=== PATIENT | male | born 1950 | race African-American/Black ===

== ENCOUNTER 2017-03-26 10:05 | Emergency (ER) ==
[2017-03-26 10:13] VITALS: BP 154/97; TEMP 96.9; BMI 40.1
--- NOTE | 2017-03-26 10:24 | ED.PDOC ---
General ED Provider: Dr. 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 LEAVE ROOM THEN BACK...FELT FAINT SHORT OF BREATH STILL SMELL IT FEELS MIGHT PASS OUT[ End ]1 hour ago 96.9 79 22 94% 154/97 4/10 CANNOT GET SMELL OF FUMES OUT OF HIS NOSTRILS...TRIED TO EAT DID NOT HELP. NO RESPIRATORY DISTRESS ON ARRIVAL. NO LOC. LUNGS CLEAR[ End ] Time Seen by Physician: 10:22 Mode of Arrival: Walk-In Information Source: Patient Exam Limitations: No limitations Primary Care Provider: SRINIVAS KLINE Nursing and Triage Documentation Reviewed and Agree: No Review of Systems - Review Of Systems Constitutional: Reports: Malaise, Weakness Eyes: Reports: No symptoms Ears, Nose, Mouth, Throat: Denies: Nose pain Respiratory: Reports: Short of air, Other Cardiac: Reports: No symptoms GI: Reports: No symptoms : Reports: No symptoms Musculoskeletal: Reports: No symptoms Skin: Reports: No symptoms Neurological: Reports: Other Endocrine: Reports: No symptoms Hematologic/Lymphatic: Reports: No symptoms All Other Systems: Other Past Medical History - Past Medical History Endocrine: Reports: DM 2 Cardiovascular: Reports: Hypertension Respiratory: Reports: None Hematological: Reports: None Gastrointestinal: Reports: Pancreatitis Genitourinary: Reports: None Neuro/Psych: Reports: None Musculoskeletal: Reports: None Cancer: Reports: None - Surgical History General Surgical History: Reports: Cholecystectomy, Other (KIDNEY REMOVED) - Family History Family History: Reports: Unknown - Social History Smoking Status: Never smoker Hx Substance Use: No Alcohol Screening: None - Immunizations Tetanus Shot up to Date: Yes Physical Exam - Physical Exam Appearance: Well-appearing, Obese Pain Distress: Moderate Neck: Supple Respiratory: Airway patent Musculoskeletal: Normal strength Skin: Warm Neurological: Sensation intact Psychiatric: Affect appropriate Critical Care Note - Critical Care Note Total Time (mins): 10 Course - Course Orders, Labs, Meds: Orders Category Date Time Status Sodium Chloride [[place]] MEDS 03/26/17 10:31 Stat 2 spray SHIRAZ ONCE STA CHEST, 2 VIEWS PA & LAT Stat RADS 03/26/17 10:18 Taken Medications Discontinued Medications Generic Name Dose Route Start Last Admin Trade Name Freq PRN Reason Stop Dose Admin Sodium Chloride 2 spray 03/26/17 10:31 [place] SHIRAZ 03/26/17 10:32 ONCE STA Vital Signs: Temp Pulse Resp BP Pulse Ox 03/26/17 10:05 96.9 F L 79 22 154/97 H 94 L Departure - Departure Time of Disposition: 10:37 Disposition: HOME SELF-CARE Discharge Problem: Exposure to chemical inhalation Instructions: Pneumonitis (ED) Condition: Good Pt referred to PMD for follow-up: Yes Additional Instructions: best not to mix cleaning agents never mix bleach with ammonia do not mix bleach with acids after contact with gas [please do not use bleach for one week] recommend saline spray to nose or any affected area increase fluids for three days- (water juice tea) wash hands and exposed skin with soap and water may use saline spray four times a day return if not better, return if any difficulty breathing recheck with PMD this week if not completely resolved right ear is irritated recommend three days of cortisporin and stop using q tips (clean ear with sweet oil or other liquids only) Prescriptions: Neomycin/Polymyxin B/Hc Otic [Cortisporin Otic Susp] 4 drop OT Q6H #1 bottle Sodium Chloride [[place]] 2 spray NS PRN PRN #1 bottle PRN Reason: Dry Nasal [place] Allergies/Adverse Reactions: Allergies cefaclor Adverse Reaction (Verified 03/26/17 10:07) trazodone Adverse Reaction (Verified 03/26/17 10:08) Home Medications: Ambulatory Orders Hydrocodone/Acetaminophen [Hydrocodon-Acetaminophn 10-325] 10 mg PO Q6HR PRN Lisinopril/Hydrochlorothiazide [Lisinopril-Hctz 10-12.5 mg Tab] 10 mg PO DAILY 12/09/13 Amoxicillin [Amoxil] 1,000 mg PO BID #22 ml 12/11/13 Atorvastatin Calcium [Lipitor] 40 mg PO QPM 03/26/17 Docusate Sodium 100 mg PO BID 03/26/17 Hydroxyzine HCl 10 mg PO DAILY PRN 03/26/17 Liraglutide [Victoza 2-Abhay] 1.8 mg SQ DAILY 03/26/17 Neomycin/Polymyxin B/Hc Otic [Cortisporin Otic Susp] 4 drop OT Q6H #1 bottle 08/ 05/17 Sertraline HCl 50 mg PO DAILY 03/26/17 Sildenafil Citrate [Viagra] 100 mg PO DAILY PRN 03/26/17 Sodium Chloride [[place]] 2 spray NS PRN PRN #1 bottle 03/26/17
--- NOTE | 2017-03-26 10:34 | DI ---
EXAM: Two-view chest HISTORY: Inhalation injury. TECHNIQUE: Frontal and lateral views of the chest were obtained. FINDINGS: The heart is normal size. Lungs are clear. The pulmonary vasculature appears normal. Po stoperative changes are seen within the right shoulder. IMPRESSION: No active cardiopulmonary disease.
[2017-03-26] MEDS: OCEAN NASAL SPRAY NAS ONE (10:36)
[2017-03-26] MEDS: OCEAN NASAL SPRAY NAS STA (10:36)
== END 2017-03-26 10:43 | disposition home or self-care (01) ==
LOC: ED 10:05
DX: T54.91XA Toxic effect of unspecified corrosive substance, accidental (unintentional), initial encounter (principal); R06.02 Shortness of breath; R55 Syncope and collapse; H92.01 Otalgia, right ear
CPT/HCPCS: 99283